=== PATIENT | female | born 1960 | race Caucasian/White ===

== ENCOUNTER 2019-10-06 15:15 | Emergency (ER) | payer MEDICARE, BC ==
[~2019-10-06] VITALS: Ht 165.1 cm; Wt 117.2 kg
[~2019-10-06 15:15] MED LIST: BUPR300T54 PO; CELE200C PO; ESOM20CA PO; LIOT25TA12 PO; METF500T20 PO; METO50TA7 PO; PROG100C11 PO; SYN0.088T PO; TRAZ-251 PO
[2019-10-06] MEDS ORDERED: normal saline 1000ML IV soln IVB ONE (16:45)
[2019-10-06 16:49] LABS: URINE HCG NEGATIVE (NEG)
[2019-10-06] MEDS ORDERED: ketorolac tromethamine 15mg/ml inj. IV ONE (17:00)
[2019-10-06] MEDS ORDERED: ondansetron/PF 4mg/2ml inj IV ONE (17:00)
[2019-10-06 17:09] LABS: BASOPHILS # (AUTO) 0.1 X10'3 (0-0.2); BASOPHILS % (AUTO) 0.5 % (0-1); EOSINOPHILS # (AUTO) 0.1 X10'3 (0-0.9); EOSINOPHILS % (AUTO) 0.4 % (0-6); HEMATOCRIT 40.4 % (35.0-45.0); HEMOGLOBIN 13.7 g/dl (12.0-16.0); LYMPHOCYTES # (AUTO) 1.2 X10'3 (1.1-4.8); LYMPHOCYTES % (AUTO) 7.3 % (21-51); MEAN CORPUSCULAR HEMOGLOBIN 29.3 PG (27.0-31.0); MEAN CORPUSCULAR HGB CONC 33.9 g/dL (33.0-36.5); MEAN CORPUSCULAR VOLUME 86.3 FL (78-98); MEAN PLATELET VOLUME 8.2 FL (7.4-10.4); MONOCYTES # (AUTO) 1.1 X10'3 (0-0.9); MONOCYTES % (AUTO) 6.6 % (2-12); NEUTROPHILS % (AUTO) 85.2 % (42-75); PLATELET COUNT 276 X10'3 (140-440); RED BLOOD COUNT 4.67 X10'6 (4.20-5.60); RED CELL DISTRIBUTION WIDTH 13.9 % (11.5-14.5); WHITE BLOOD COUNT 16.4 X10'3 (4.5-11.0)
[2019-10-06 17:22] LABS: ALANINE AMINOTRANSFERASE 46 U/L (12-78); ALBUMIN 3.4 G/DL (3.4-5.0); ALBUMIN/GLOBULIN RATIO 0.8 (1.1-1.5); ALKALINE PHOSPHATASE 123 IU/L (46-116); ANION GAP 12 (8-16); ASPARTATE AMINO TRANSFERASE 27 U/L (10-37); BILIRUBIN,TOTAL 0.7 MG/DL (0.1-1.0); BLOOD UREA NITROGEN 9 MG/DL (7-18); BUN/CREATININE RATIO 11.7 (6.6-38.0); CALCIUM 8.8 MG/DL (8.5-10.1); CHLORIDE 102 MMOL/L (99-107); CREATININE 0.77 MG/DL (0.40-0.90); GLUCOSE 118 MG/DL (70-104); LIPASE < 50 U/L (73-393); POTASSIUM 3.7 MMOL/L (3.5-5.1); SODIUM 138 MMOL/L (135-145); TOTAL CARBON DIOXIDE 24.5 MMOL/L (24-32); TOTAL PROTEIN 7.9 G/DL (6.4-8.2); eGFR 77 ML/MIN
[2019-10-06 17:34] LABS: CLARITY,URINE CLOUDY (Clear); COLOR,URINE YELLOW (Yellow); GLUCOSE, URINE NEGATIVE (Neg); KETONES,URINE TRACE mg/dl (Neg); LEUKOCYTE ESTERASE ,URINE LARGE (Neg); NITRITES, URINE NEGATIVE (Neg); OCCULT BLOOD,URINE LARGE (Neg); PROTEIN,URINE TRACE mg/dl (Neg); UROBILINOGEN,URINE 0.2 E.U/dL (0.2-1.0)
[2019-10-06 17:38] LABS: UA COLLECTION TYPE CLN CATCH MIDSTREAM
[2019-10-06] MEDS ORDERED: CefTRIAXone/D5W-Rocephin 1gm 50 ML IV ONE (17:40)
[2019-10-06 17:44] LABS: BACTERIA,URINE 2+ /HPF (Neg); MUCUS STRANDS FEW /LPF (Neg); SQUAMOUS EPITHELIAL CELL,UR FEW /LPF (FEW); WBC,URINE 50-100 /HPF (0-4)
[2019-10-06 17:45] LABS: WBC CLUMPS,URINE MANY /HPF (NEGATIVE)
[2019-10-06] MEDS ORDERED: CEPH-572 PO (17:59)
[2019-10-06] MEDS ORDERED: ONDA4TAB6 PO (17:59)
[2019-10-06] MEDS ORDERED: morphine 4 MG/ML inj SYRINge IV ONE (18:00)
[2019-10-06 18:36] VITALS: BP 157/92
== END 2019-10-06 18:38 | disposition home or self-care (01) ==
LOC: ER 15:16
DX: N12 Tubulo-interstitial nephritis, not specified as acute or chronic (principal); R11.10 Vomiting, unspecified; R10.30 Lower abdominal pain, unspecified; Z88.8 Allergy status to other drugs, medicaments and biological substances; Z79.899 Other long term (current) drug therapy; Z79.2 Long term (current) use of antibiotics
CPT/HCPCS: 36415; 74176; 80053; 81001; 81025; 83690; 85025; 87077; 87088; 87186; 96361; 96365; 96375; 99284; J0696; J1885; J2270; J2405; J7030